=== PATIENT | female | born 1955 | race Caucasian/White ===

== ENCOUNTER → 2016-06-18 | Outpatient (CLI) | payer BC ==
[~2016-06-18] MED LIST: BLACK COHASH; BUSPIRONE HCL10 MG PO; CALCIUM 500 + D1 TAB PO; CENTRUM PO; FIBER CHOICE; FIBER SELECT G1 EACH PO; MAXZIDE 75/50 T1 TAB PO; PAROXETINE HCL20 M1 PO; PHENERGAN PO; PILOCARPINE HCL5 MG PO; PROZAC PO; SIMVASTATIN40 MG PO; SYNTHROID PO; TRIAMTERENE-HC1 EACH PO; VITAMIN C PO; VITAMIN C500 M1 PO; VITAMIN D1000 UNI2 PO; VYTORIN 10/40 T1 TAB PO
--- NOTE | ~2016-06-18 | MY11 ---
[facility] A Service [facility] RADIOLOGY TEXT RESULTS PATIENT: SEMAJ MICHELLE LOCATION: [facility] : 59 UNIT #: [id number] AGE: [address]: Dolores Sales MD SEX: F ORDER DR: [id number] [place] [id number] O MR#: [id number] Acc #: [id number] NAME: SEMAJ MICHELLE : 1955 SEX: F STUDY DATE/TIME: 06/18/2016 9:12 UNIT: [facility] ROOM: STUDY DESCRIPTION: MY Mammogram Screening Dig Vitaly Attending Physician: Dolores Sales M.D. Referring Physician: Dolores Sales M.D. Ordering Physician: Dolores Sales M.D. Primary Care Physician: Dolores Sales M.D. MEDICAL IMAGING REPORT This report is preliminary unless electronic signature is present. EXAM Bilateral Digital Screening Mammogram with CAD INDICATION Breast cancer screening. 61-year-old asymptomatic female. No personal or family history of breast cancer. COMPARISON June 17, 2015, May 31, 2014, May 25, 2013, June 02, 2012, May 08, 2010, April 21, 2009, April 12, 2008. FINDINGS There are scattered fibroglandular tissues. No suspicious findings are present. IMPRESSION No mammographic evidence of malignancy. Annual screening mammography and clinical breast exam are recommended. A result letter will be sent to the patient. Patients over the age of 40 are entered into a reminder system with target due date for the next mammogram. BIRADS: 1 Negative Dictated by... Scott Narayanan M.D. [facility] A Service [facility] RADIOLOGY TEXT RESULTS PATIENT: SEMAJ MICHELLE LOCATION: [facility] : 59 UNIT #: [id number] AGE: [address]: Dolores Sales MD SEX: F ORDER DR: THIS IS AN ELECTRONICALLY VERIFIED REPORT Scott Narayanan M.D. at 06/20/2016 10:40 AM Josee TD: 06/18/2016 11:35 JOB #: [id number] MEDICAL IMAGING REPORT Page 1 of 1
== END | disposition home or self-care (01) ==
LOC: SMAM 08:21
DX: Z12.31 Encounter for screening mammogram for malignant neoplasm of breast (principal)
CPT/HCPCS: G0202